=== PATIENT | female | born 1950 | race Caucasian/White ===

== ENCOUNTER 2021-11-19 17:00 | Emergency (ER) | payer OTHER, MEDICARE ==
[2021-11-19] MEDS: Labetalol 100 MG/20 ML MDV IVPUSH ONE (19:23)
== END 2021-11-19 21:25 | disposition home or self-care (01) ==
LOC: KA.ED 17:00
DX: I10 Essential (primary) hypertension (principal); V69.00XA Driver of heavy transport vehicle injured in collision with unspecified motor vehicles in nontraffic accident, initial encounter; Y92.410 Unspecified street and highway as the place of occurrence of the external cause
CPT/HCPCS: 96374; 99283; 99284-25; J3490